=== PATIENT | male | born 1985 | race American Indian/Alaskan Native ===

== ENCOUNTER 2018-05-07 07:34 | Emergency (ER) | payer BC ==
[2018-05-07 07:55] VITALS: RESP 18; TEMP 98
--- NOTE | 2018-05-07 08:08 | ED PDOC ---
Arrival/HPI - General Historian: Patient - History of Present Illness Narrative History of Present Illness (Text): Patient is a 33 yr old male with PMH ACL repair who presents with left ankle pain and swelling after injuring his ankle during a basketball game last night with friends. He states that as he was playing he accidentally stepped on another players foot and his ankle rolled. He states that he was able to ambulate afterwards and did not feel lightheaded. This morning he noticed that the ankle was significantly more swollen and painful and he was unable to fit his shoe on. Patient describes pain as 3/10 and throbbing. he otherwise denies VALDES, SOB, CP, n/v, abdominal pain, f/c, extremity numbness/weakness. 05/07/18 08:05 Time/Duration: Prior to Arrival, 24 hours Symptom Onset: Sudden Symptom Course: Worsening Quality: Throbbing Severity Level: 3 Context: Exertion (playing basketball) <Laureen Taylor - Last Filed: 05/07/18 08:52> <Chris Banegas DO - Last Filed: 05/07/18 17:04> - General Chief Complaint: Lower Extremity Problem/Injury Time Seen by Provider: 05/07/18 07:39 Past Medical History - Provider Review Nursing Documentation Reviewed: Yes - Infectious Disease Hx of Infectious Diseases: None - Psychiatric Hx Substance Use: No - Anesthesia Hx Anesthesia: No <Laureen Taylor - Last Filed: 05/07/18 08:52> Family/Social History - Physician Review Nursing Documentation Reviewed: Yes Family/Social History: Unknown Family HX Smoking Status: Unknown If Ever Smoked Hx Alcohol Use: No Hx Substance Use: No <Laureen Taylor - Last Filed: 05/07/18 08:52> Allergies/Home Meds <Laureen Taylor - Last Filed: 05/07/18 08:52> <Chris Banegas DO - Last Filed: 05/07/18 17:04> Allergies/Adverse Reactions: Allergies sea food Allergy (Uncoded 05/07/18 07:56) RASH Review of Systems - Physician Review All systems were reviewed & negative as marked: Yes - Review of Systems Constitutional: absent: Fatigue, Fevers Respiratory: absent: SOB, Cough Cardiovascular: absent: Chest Pain Gastrointestinal: absent: Abdominal Pain, Nausea, Vomiting Musculoskeletal: Arthralgias, Joint Swelling Skin: absent: Rash, Skin Lesions, Laceration Neurological: Gait Changes (limp due to pain). absent: Headache, Dizziness, Focal Weakness Endocrine: absent: Diaphoresis <Laureen Taylor - Last Filed: 05/07/18 08:52> Physical Exam Vital Signs Reviewed: Yes Vital Signs Temp Pulse Resp BP Pulse Ox 05/07/18 07:53 98 F 90 18 134/80 98 Temperature: Afebrile Blood Pressure: Normal Pulse: Regular Respiratory Rate: Normal Appearance: Positive for: Well-Appearing, Non-Toxic, Comfortable Pain Distress: None Mental Status: Positive for: Alert and Oriented X 3 - Systems Exam Head: Present: Atraumatic, Normocephalic Extroacular Muscles: Present: EOMI Mouth: Present: Moist Mucous Membranes Neck: Present: Normal Range of Motion Respiratory/Chest: Present: Clear to Auscultation, Good Air Exchange. No: Respiratory Distress, Accessory Muscle Use Cardiovascular: Present: Regular Rate and Rhythm, Normal S1, S2. No: Murmurs Abdomen: No: Tenderness, Distention Upper Extremity: Present: Normal Inspection, Normal ROM, NORMAL PULSES. No: Cyanosis, Edema Lower Extremity: Present: NORMAL PULSES, Tenderness (left ankle), Swelling (lef tankle), Neurovascularly Intact, Capillary Refill < 2 s. No: CALF TENDERNESS, Normal ROM (decreased ROM d/t swelling and pain left ankle), Erythema, Te mperature Abnormalties Neurological: Present: GCS=15, CN II-XII Intact, Speech Normal Skin: Present: Warm, Dry, Normal Color. No: Rashes Psychiatric: Present: Alert, Oriented x 3, Normal Insight, Normal Concentration <Laureen Taylor - Last Filed: 05/07/18 08:52> Vital Signs Temp Pulse Resp BP Pulse Ox 05/07/18 07:53 98 F 90 18 134/80 98 <Chris Banegas DO - Last Filed: 05/07/18 17:04> Medical Decision Making ED Course and Treatment: Impression: 33 yr old male with PMH left ACL repair presents after rolling his ankle last night with left ankle pain plan: left ankle XR pt refused pain medication when offered reassess and dispo 05/07/18 08:11 - RAD Interpretation Radiology Orders: 05/07/18 08:05 ANKLE LEFT 3 VIEWS ROUTINE [RAD] Stat <Laureen Taylor - Last Filed: 05/07/18 08:52> ED Course and Treatment: 05/07/18 08:12 33 year old male presents to the ED for evaluation of left ankle pain s/p mechanical injury last night. In agreement with resident note which contains more details about the patient. Patient seen and evaluated with resident. Came up with plan and treatment together. - RAD Interpretation Radiology Orders: 05/07/18 08:05 ANKLE LEFT 3 VIEWS ROUTINE [RAD] Stat <Chris Banegas DO - Last Filed: 05/07/18 17:04> - PA / [employer] / Resident Statement / has reviewed & agrees with the documentation as recorded. MD/ has examined the patient and agrees with the treatment plan. - Scribe Statement The provider has reviewed the documentation as recorded by the Scribe Willa Kimbrough. All medical record entries made by the Scribe were at my direction and personally dictated by me. I have reviewed the chart and agree that the record accurately reflects my personal performance of the history, physical exam, medical decision making, and the department course for this patient. I have also personally directed, reviewed, and agree with the discharge instructions and disposition. <Chris Banegas DO - Last Filed: 05/07/18 17:04> Disposition/Present on Arrival - Present on Arrival Any Indicators Present on Arrival: No History of DVT/PE: No History of Uncontrolled Diabetes: No Urinary Catheter: No History of Decub. Ulcer: No History Surgical Site Infection Following: None - Disposition Have Diagnosis and Disposition been Completed?: Yes Disposition Time: 08:50 Patient Plan: Discharge <Laureen Taylor - Last Filed: 05/07/18 08:52> - Present on Arrival Any Indicators Present on Arrival: No - Disposition Have Diagnosis and Disposition been Completed?: Yes Disposition Time: 08:45 <Chris Banegas DO - Last Filed: 05/07/18 17:04> - Disposition Diagnosis: Ankle sprain Disposition: HOME/ ROUTINE Condition: GOOD Discharge Instructions (ExitCare): Ankle Sprain (DC), Sports Taping for the Ankle Additional Instructions: Please follow up with your primary care doctor within 3-5 days of discharge if your symptoms worsen or if new concerning symptoms develop please proceed immediately to the nearest ER for further evaluation. Prescriptions: Ibuprofen [Motrin] 600 mg PO Q6 PRN #20 tab PRN Reason: Pain, Moderate (4-7) Referrals: [facility], [Non-Staff] - Follow up with primary Forms: [employer]umi[employer]ou (Swiss)
--- NOTE | 2018-05-07 08:46 | RAD ---
Date of service: 05/07/2018 PROCEDURE: Left Ankle Radiographs. HISTORY: ankle pain COMPARISON: None available. FINDINGS: BONES: No acute fracture or destructive bony lesion identified. JOINTS: Normal. No osteoarthritis. Ankle mortise maintained. Talar dome intact SOFT TISSUES: Moderate anterior and lateral soft tissue edema noted. OTHER FINDINGS: None. IMPRESSION: Moderate anterior and lateral soft tissue edema noted. No acute fracture or dislocation left ankle.
[2018-05-07 09:40] VITALS: BP 126/80; PULSE 82; O2SAT 99
== END 2018-05-07 09:41 | disposition home or self-care (01) ==
LOC: ED 07:34
DX: S93.402A Sprain of unspecified ligament of left ankle, initial encounter (principal); Y93.67 Activity, basketball